=== PATIENT | male | born 1985 | race Hispanic/Latino ===

== ENCOUNTER 2022-07-18 09:05 | Emergency (ER) | payer OTHER ==
[~2022-07-18] VITALS: Ht 182.9 cm; Wt 102.1 kg
[2022-07-18 09:11] VITALS: BP 134/78
== END 2022-07-18 10:15 | disposition home or self-care (01) ==
LOC: EDH 09:05
DX: S93.402A Sprain of unspecified ligament of left ankle, initial encounter (principal); X58.XXXA Exposure to other specified factors, initial encounter; Z90.49 Acquired absence of other specified parts of digestive tract; Y93.89 Activity, other specified; Y92.89 Other specified places as the place of occurrence of the external cause; Y99.8 Other external cause status
CPT/HCPCS: 73600

== ENCOUNTER 2023-09-29 01:27 | Emergency (ER) | payer OTHER ==
[~2023-09-29] VITALS: Ht 182.9 cm; Wt 102.1 kg
[2023-09-29 01:38] VITALS: BP 135/68; PULSE 80; RESP 18; O2SAT 98
[2023-09-29] MEDS ORDERED: PRED20TA3 PO (01:53)
[2023-09-29] MEDS ORDERED: GUAI1TBM19 PO (01:53)
[2023-09-29] MEDS ORDERED: PREDNISONE 20 MG TABLET PO ONE (02:00)
[2023-09-29 02:03] LABS: RAPID GROUP A STREP negative (NEGATIVE)
[2023-09-29 02:10] LABS: SARS-CoV-2, RNA, NAAT NEGATIVE SARS CoV-2 (NEGATIVE)
[2023-09-29 02:13] LABS: INFLUENZA TYPE A Negative For Type A (NEGATIVE); INFLUENZA TYPE B Negative For Type B (NEGATIVE)
== END 2023-09-29 02:46 | disposition home or self-care (01) ==
LOC: EDH 01:27
DX: J98.8 Other specified respiratory disorders (principal); Z90.89 Acquired absence of other organs; Z20.822 Contact with and (suspected) exposure to COVID-19
CPT/HCPCS: 99283; 87635; 87880; 87804 ×2; C9803

== ENCOUNTER 2023-10-08 11:14 | Emergency (ER) | payer OTHER ==
[~2023-10-08] VITALS: Ht 182.9 cm; Wt 102.1 kg
[~2023-10-08 11:14] MED LIST: GUAI1TBM19 PO; PRED20TA3 PO
[2023-10-08 11:35] VITALS: BP 128/79; PULSE 99; RESP 18
[2023-10-08] MEDS ORDERED: KETOROLAC 60 MG VIAL (30MG/ML) IM ONE (14:00)
[2023-10-08] MEDS ORDERED: HYDROCODONE/ACETAMINOPHEN 5/325 MG TAB PO ONE (14:00)
[2023-10-08] MEDS ORDERED: AMOX500C2 PO (15:40)
[2023-10-08] MEDS ORDERED: IBUP-2071 PO (15:40)
[2023-10-08] MEDS ORDERED: CORTSOL AS (15:40)
== END 2023-10-08 16:41 | disposition home or self-care (01) ==
LOC: EDH 11:14
DX: H60.8X2 Other otitis externa, left ear (principal); J06.9 Acute upper respiratory infection, unspecified; Z79.899 Other long term (current) drug therapy; Z90.49 Acquired absence of other specified parts of digestive tract
CPT/HCPCS: 99283; 96372; J1885